=== PATIENT | male | born 1965 | race Hispanic/Latino ===

== ENCOUNTER 2019-01-12 16:19 | Emergency (ER) | payer BC, OTHER ==
[2019-01-12] MEDS ORDERED: ONDANSETRON HCL 4 MG/2 ML VIAL ONE (16:25)
[2019-01-12] MEDS ORDERED: SODIUM CHLORIDE 0.9% 1000ML 1,000 ML IV ONE (16:25)
[2019-01-12 16:36] LABS: BASOPHILS % (AUTO) 0.6 % (0.0-5.0); EOSINOPHILS % (AUTO) 2.1 % (0.0-8.0); HEMATOCRIT 46.2 % (42-54); LYMPHOCYTES % (AUTO) 44.2 % (21.0-51.0); MEAN CORPUSCULAR HEMOGLOBIN 28.9 pg (27.0-33.0); MEAN CORPUSCULAR HGB CONC 34.1 g/dL (32.0-36.0); MEAN CORPUSCULAR VOLUME 84.6 fL (79-99); MONOCYTES % (AUTO) 8.9 % (3.0-13.0); NEUTROPHILS % (AUTO) 44.2 % (40.0-77.0); PLATELET COUNT (AUTO) 296 K/uL (130-400); RED BLOOD CELL COUNT(AUTO) 5.47 MIL/uL (4.50-6.20); RED CELL DISTRIBUTION WIDTH 15.5 % (11.0-15.5); WHITE BLOOD COUNT (AUTO) 9.5 K/uL (4.8-10.8)
[2019-01-12 16:43] LABS: CREATININE 0.9 mg/dL (0.5-1.5); POTASSIUM 3.6 mmol/L (3.5-5.1)
[2019-01-12 16:47] LABS: INR 1.11 (0.85-1.15); PARTIAL THROMBOPLASTIN TIME 27.5 SEC (26.3-35.5); PROTHROMBIN TIME 11.6 SEC (9.6-11.6)
[2019-01-12 16:54] LABS: ALBUMIN 3.2 g/dL (3.5-5.0); BILIRUBIN,TOTAL 0.4 mg/dL (0.2-1.0); TOTAL PROTEIN, SERUM 8.2 g/dL (6.0-8.3)
[2019-01-12] MEDS ORDERED: MECLIZINE HCL 25 MG TABLET ONE (17:12)
== END 2019-01-12 18:47 | disposition home or self-care (01) ==
LOC: EDH 16:19
DX: R42 Dizziness and giddiness (principal); I10 Essential (primary) hypertension; E11.9 Type 2 diabetes mellitus without complications; Z98.890 Other specified postprocedural states; Z72.0 Tobacco use
CPT/HCPCS: 36415; 70450; 71045; 80053; 82550; 82948; 83874; 84484; 85025; 85610; 85730; 93005; 96361; 96374; 99285; J2405; J7030

== ENCOUNTER 2019-11-24 07:42 | Inpatient (IN) | payer OTHER ==
[2019-11-24 09:28] LABS: BASOPHILS % (AUTO) 0.3 % (0.0-5.0); EOSINOPHILS % (AUTO) 1.8 % (0.0-8.0); HEMATOCRIT 42.9 % (42-54); LYMPHOCYTES % (AUTO) 1.4 % (21.0-51.0); MEAN CORPUSCULAR HGB CONC 33.3 g/dL (32.0-36.0); MEAN CORPUSCULAR VOLUME 84.1 fL (79-99); MONOCYTES % (AUTO) 0.9 % (3.0-13.0); NEUTROPHILS % (AUTO) 95.3 % (40.0-77.0); PLATELET COUNT (AUTO) 148 K/uL (130-400); RED CELL DISTRIBUTION WIDTH 15.4 % (11.0-15.5); WHITE BLOOD COUNT (AUTO) 11.2 K/uL (4.8-10.8)
[2019-11-24 09:40] LABS: INR 1.25 (0.85-1.15); PARTIAL THROMBOPLASTIN TIME 29.6 SEC (26.3-35.5); PROTHROMBIN TIME 13.4 SEC (9.6-11.6)
[2019-11-24 09:42] LABS: CARBON DIOXIDE 25 mmol/L (21-32); CHLORIDE 105 mmol/L (101-111); CREATININE 1.2 mg/dL (0.5-1.5); GLOMERULAR FILTR. RATE CALC 67 mL/min (>60); GLUCOSE,RANDOM 85 mg/dL (70-105); SODIUM SERUM 139 mmol/L (136-145); UREA NITROGEN, BLOOD 19 mg/dL (7-18)
[2019-11-24 09:53] LABS: ALANINE AMINOTRANSFERASE 138 U/L (12-78); ALBUMIN 2.7 g/dL (3.5-5.0); ASPARTATE AMINOTRANSFERASE 132 U/L (10-37); BILIRUBIN,TOTAL 0.7 mg/dL (0.2-1.0); CREATINE KINASE, TOTAL 68 U/L (21-232); MYOGLOBIN 56 ng/mL (10-92); TOTAL PROTEIN, SERUM 6.3 g/dL (6.0-8.3); TROPONIN I < 0.04 ng/mL (0.00-0.06)
[2019-11-24] MEDS ORDERED: CEFTRIAXONE SODIUM 2 GM VIAL ONE ×2 (10:26→10:28)
[2019-11-24 11:25] LABS: APPEARANCE,URINE Clear (CLEAR); BILIRUBIN,URINE Small (NEGATIVE); COLOR,URINE Dark Yellow (YELLOW); GLUCOSE, URINE (UA) Negative (NEGATIVE); KETONES,URINE Trace mg/dL (NEGATIVE); LEUKOCYTE ESTERASE ,URINE Moderate (NEGATIVE); NITRATE,URINE Negative (NEGATIVE); OCCULT BLOOD,URINE Negative (NEGATIVE); PH,URINE 5.5 (5.0-8.0); PROTEIN,URINE Trace mg/dL (NEGATIVE)
[2019-11-24 11:40] LABS: BACTERIA,URINE Few /HPF (None Seen); RBC,URINE 0-1 /HPF (0-1)
[2019-11-24] MEDS ORDERED: ACETAMINOPHEN 325 MG TAB PO PRN (13:15)
[2019-11-24] MEDS ORDERED: SODIUM CHLORIDE 0.9% 1000ML 1,000 ML IV SCH (13:15)
[2019-11-24] MEDS ORDERED: CEFTRIAXONE SODIUM 1 GM IVP SCH (13:15)
[2019-11-24] MEDS ORDERED: ONDANSETRON HCL 4 MG/2 ML VIAL IVP PRN (13:30)
--- NOTE | 2019-11-24 15:15 | NUR ---
PATIENT ARRIVED FROM ED PATIENT ARRIVED FROM ED TO 230 AT 1515. PATIENT IS ON ROOM AIR, VS ARE STABLE. PATIENT IS IN NO APPARENT DISTRESS AT THIS TIME.
[2019-11-24 15:30] VITALS: BP 100/61
[2019-11-24] MEDS ORDERED: ATOR10 PO (17:05)
[2019-11-24] MEDS ORDERED: CALC-1174 PO (17:05)
[2019-11-24] MEDS ORDERED: PREG50CA63 PO (17:05)
[2019-11-24] MEDS ORDERED: MULT-1203 PO (17:14)
[2019-11-24] MEDS: CEFTRIAXONE SODIUM 1 GM IVP SCH (17:30)
--- NOTE | 2019-11-24 18:40 | NUR ---
DR. RAZIA RANDLE AT BEDSIDE TO SEE AND ASSESS PATIENT.
[2019-11-24 20:16] VITALS: BP 95/56
[2019-11-24] MEDS: FAMOTIDINE 20MG TAB 20 MG TAB PO SCH (21:05)
[2019-11-25] VITALS (7 sets, daily range): BP systolic 106–129; BP diastolic 48–70
[2019-11-25 05:19] LABS: ALBUMIN 2.4 g/dL (3.5-5.0); BILIRUBIN,TOTAL 0.5 mg/dL (0.2-1.0); CREATININE 0.7 mg/dL (0.5-1.5); MAGNESIUM 1.8 mg/dL (1.80-2.40); PHOSPHORUS 2.1 mg/dL (2.5-4.9); POTASSIUM 3.4 mmol/L (3.5-5.1); TOTAL PROTEIN, SERUM 5.8 g/dL (6.0-8.3)
[2019-11-25 05:24] LABS: BASOPHILS % (AUTO) 0.3 % (0.0-5.0); HEMATOCRIT 37.7 % (42-54); LYMPHOCYTES % (AUTO) 5.5 % (21.0-51.0); MEAN CORPUSCULAR HEMOGLOBIN 28.4 pg (27.0-33.0); MEAN CORPUSCULAR HGB CONC 33.4 g/dL (32.0-36.0); MEAN CORPUSCULAR VOLUME 84.9 fL (79-99); MONOCYTES % (AUTO) 4.3 % (3.0-13.0); NEUTROPHILS % (AUTO) 88.5 % (40.0-77.0); PLATELET COUNT (AUTO) 116 K/uL (130-400); RED BLOOD CELL COUNT(AUTO) 4.44 MIL/uL (4.50-6.20); RED CELL DISTRIBUTION WIDTH 15.6 % (11.0-15.5); WHITE BLOOD COUNT (AUTO) 11.7 K/uL (4.8-10.8)
[2019-11-25] MEDS: CEFTRIAXONE SODIUM 1 GM IVP SCH ×2 (05:43→16:44)
[2019-11-25] MEDS: FAMOTIDINE 20MG TAB 20 MG TAB PO SCH ×2 (09:56→21:13)
[2019-11-25] MEDS: ENOXAPARIN SODIUM 30 MG/0.3 ML SQ SCH (09:57)
--- NOTE | 2019-11-25 15:33 | NUR ---
INIITAL SPOKE W/ PATIENT TO VERIFY DC PLANNING- EMPLOYED, ACTIVE , INDEPENDENT, SMOKER, LIVES W [employer] [facility] WHO WILL PROVIDE TRANSPORT. DC P HOME. Addendum: 11/25/19 at 1535 by OTONIEL HYLTON RN CM Amended: Links added.
[2019-11-26 03:00] VITALS: BP 137/70
[2019-11-26 04:51] LABS: BASOPHILS % (AUTO) 0.2 % (0.0-5.0); EOSINOPHILS % (AUTO) 2.1 % (0.0-8.0); HEMATOCRIT 37.8 % (42-54); LYMPHOCYTES % (AUTO) 17.6 % (21.0-51.0); MEAN CORPUSCULAR HEMOGLOBIN 27.8 pg (27.0-33.0); MEAN CORPUSCULAR HGB CONC 33.1 g/dL (32.0-36.0); MONOCYTES % (AUTO) 6.3 % (3.0-13.0); NEUTROPHILS % (AUTO) 73.5 % (40.0-77.0); PLATELET COUNT (AUTO) 102 K/uL (130-400); RED CELL DISTRIBUTION WIDTH 15.4 % (11.0-15.5); WHITE BLOOD COUNT (AUTO) 6.3 K/uL (4.8-10.8)
[2019-11-26] MEDS: CEFTRIAXONE SODIUM 1 GM IVP SCH ×2 (05:15→16:57)
[2019-11-26 05:26] LABS: ALBUMIN 2.3 g/dL (3.5-5.0); BILIRUBIN,TOTAL 0.4 mg/dL (0.2-1.0); CREATININE 0.6 mg/dL (0.5-1.5); CRP QUANTITATIVE 112.8 mg/L (0.00-9.0); POTASSIUM 3.4 mmol/L (3.5-5.1); TOTAL PROTEIN, SERUM 5.8 g/dL (6.0-8.3)
[2019-11-26] MEDS: ENOXAPARIN SODIUM 30 MG/0.3 ML SQ SCH (07:40)
[2019-11-26] MEDS: FAMOTIDINE 20MG TAB 20 MG TAB PO SCH ×2 (07:40→20:42)
[2019-11-26 08:59] VITALS: BP 115/64
[2019-11-26] MEDS ORDERED: ZOSYN 3.375GM+NS 50ML 50 ML IV SCH (09:45)
[2019-11-26] MEDS ORDERED: POTASSIUM CHLORIDE 20 MEQ ERTAB PO SCH (10:00)
[2019-11-26 12:06] VITALS: BP 125/77
[2019-11-26] MEDS ORDERED: LEVOFLOXACIN 500 MG TABLET PO SCH (12:15)
--- NOTE | 2019-11-26 13:13 | NUR ---
PLAN OF CARE DISCUSSED WITH PRIMARY RN- KIMANI THIS MORNING + HESHAM,+ NOEL AGOSTO PENDING, PATIENT INQUIRING RE DISCHARGE ANTICIPATING NO DISCHARGE TODAY DC PLAN WILL STILL BE TO HOME. WILL WAIT ON MED REC'S FROM DR. Mims Addendum: 11/26/19 at 1317 by OTONIEL HYLTON RN CM Amended: Links added.
[2019-11-26 16:35] VITALS: BP 99/64
[2019-11-26 19:00] VITALS: BP 105/68
[2019-11-27 00:14] VITALS: BP 108/72
[2019-11-27 04:23] VITALS: BP 110/66
[2019-11-27] MEDS: CEFTRIAXONE SODIUM 1 GM IVP SCH ×2 (04:49→16:02)
[2019-11-27 06:03] LABS: BASOPHILS % (AUTO) 0.4 % (0.0-5.0); EOSINOPHILS % (AUTO) 1.9 % (0.0-8.0); HEMATOCRIT 40.8 % (42-54); LYMPHOCYTES % (AUTO) 23.4 % (21.0-51.0); MEAN CORPUSCULAR HEMOGLOBIN 28.5 pg (27.0-33.0); MEAN CORPUSCULAR HGB CONC 33.6 g/dL (32.0-36.0); MEAN CORPUSCULAR VOLUME 84.8 fL (79-99); MONOCYTES % (AUTO) 8.5 % (3.0-13.0); NEUTROPHILS % (AUTO) 64.8 % (40.0-77.0); PLATELET COUNT (AUTO) 121 K/uL (130-400); RED BLOOD CELL COUNT(AUTO) 4.81 MIL/uL (4.50-6.20); RED CELL DISTRIBUTION WIDTH 15.2 % (11.0-15.5); WHITE BLOOD COUNT (AUTO) 5.2 K/uL (4.8-10.8)
[2019-11-27 06:25] LABS: ALBUMIN 2.6 g/dL (3.5-5.0); BILIRUBIN,TOTAL 0.3 mg/dL (0.2-1.0); CREATININE 0.6 mg/dL (0.5-1.5); CRP QUANTITATIVE 58.1 mg/L (0.00-9.0); POTASSIUM 3.7 mmol/L (3.5-5.1); TOTAL PROTEIN, SERUM 6.5 g/dL (6.0-8.3)
--- NOTE | 2019-11-27 08:00 | NUR ---
TRANSFER NOTIFIED DR. CABRERA AT THIS TIME ABOUT NEGATIVE COVID RESULTS. HE STATED OKAY TO TRANSFER TO MED SURG BUT TO NOTIFY DR. 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 DR. DEL RIO WAS NOTIFIED OF TRANSFER ORDER.
[2019-11-27 08:12] VITALS: BP 126/71
[2019-11-27] MEDS: ENOXAPARIN SODIUM 30 MG/0.3 ML SQ SCH (08:28)
[2019-11-27] MEDS: FAMOTIDINE 20MG TAB 20 MG TAB PO SCH (08:28)
[2019-11-27] MEDS ORDERED: LEVOFLOXACIN 500 MG TABLET PO SCH (09:00)
[2019-11-27 11:51] VITALS: BP 107/62
--- NOTE | 2019-11-27 14:46 | NUR ---
REPORT REPORT GIVEN TO FRENCH ELLISON FROM 3RD FLOOR. PATIENT WILL BE TRANSFERRED SHORTLY.
[2019-11-27 16:31] VITALS: BP 123/67
--- NOTE | 2019-11-27 17:00 | NUR ---
DISCHARGE PATIENT GIVEN DISCHARGE INSTRUCTIONS AND EDUCATION ON FOLLOW UP APPOINTMENTS, NEW PRESCRIBED MEDICATION, AND S/S TO REPORT. PATIENT VERBALIZED UNDERSTANDING OF ALL EDUCATION GIVEN VIA TEACH BACK. IV DISCONTINUED, CATHETER INTACT. PATIENT LEFT VIA WHEELCHAIR, PCP AT SIDE. NO DISTRESS NOTED. ALL BELONGINGS TAKEN WITH.
== END 2019-11-27 17:40 | disposition home or self-care (01) | DRG 872 ==
LOC: EDH 07:42 → EDHIP 13:10 → 2AH 15:05 → 3DH 11-27 15:19
PROVIDERS: ADMIT Internal Medicine; ATTEND Internal Medicine
DX: A41.9 Sepsis, unspecified organism (principal); N39.0 Urinary tract infection, site not specified; Z16.24 Resistance to multiple antibiotics; E11.40 Type 2 diabetes mellitus with diabetic neuropathy, unspecified; E87.6 Hypokalemia; F17.210 Nicotine dependence, cigarettes, uncomplicated; B96.89 Other specified bacterial agents as the cause of diseases classified elsewhere; E78.5 Hyperlipidemia, unspecified; R30.0 Dysuria; I10 Essential (primary) hypertension; R53.81 Other malaise; E66.9 Obesity, unspecified; Z20.828 Contact with and (suspected) exposure to other viral communicable diseases; Z98.84 Bariatric surgery status; Z83.3 Family history of diabetes mellitus
CPT/HCPCS: 36415; 71045; 80053; 81001; 82550; 82728; 83605; 83615; 83735; 83874; 84100; 84145; 84484; 85025; 85378; 85384; 85610; 85730; 86140; 87040; 87077; 87088; 87186; 87633; 87635; 87804; 93005; G0378; J0696; J1650; J7030

== ENCOUNTER 2022-09-13 07:37 | Emergency (ER) | payer OTHER ==
[~2022-09-13] VITALS: Ht 167.6 cm; Wt 122.5 kg
[~2022-09-13 07:37] MED LIST: ATOR10 PO; CALC-1174 PO; MULT-1203 PO; PREG50CA63 PO
[2022-09-13 09:10] LABS: APPEARANCE,URINE CLEAR (CLEAR); BILIRUBIN,URINE NEGATIVE (NEGATIVE); COLOR,URINE YELLOW (YELLOW); GLUCOSE, URINE (UA) NEGATIVE (NEGATIVE); KETONES,URINE NEGATIVE (NEGATIVE); LEUKOCYTE ESTERASE ,URINE 75 Leu/uL (NEGATIVE); NITRATE,URINE 1+ (NEGATIVE); OCCULT BLOOD,URINE NEGATIVE (NEGATIVE); PROTEIN,URINE NEGATIVE (NEGATIVE); UROBILINOGEN,URINE 0.2 mg/dL (0.2-1.0)
[2022-09-13 09:28] LABS: BACTERIA,URINE MANY /HPF (None Seen); MUCUS,URINE RARE LPF (None Seen); SQUAMOUS EPITHELIAL CELL,UR RARE /HPF (0-2)
[2022-09-13] MEDS ORDERED: NAPR-1180 PO (11:21)
[2022-09-13] MEDS ORDERED: SULF1TAB42 PO (11:21)
[2022-09-13] MEDS ORDERED: ACETAMINOPHEN 500 MG TABLET PO ONE (11:30)
[2022-09-13] MEDS ORDERED: CEFTRIAXONE 1G VIAL IM ONE (11:30)
[2022-09-13 12:15] VITALS: BP 126/60
== END 2022-09-13 12:20 | disposition home or self-care (01) ==
LOC: EDH 07:37
DX: S06.0X0A Concussion without loss of consciousness, initial encounter (principal); S80.11XA Contusion of right lower leg, initial encounter; S16.1XXA Strain of muscle, fascia and tendon at neck level, initial encounter; S40.012A Contusion of left shoulder, initial encounter; N30.00 Acute cystitis without hematuria; F17.200 Nicotine dependence, unspecified, uncomplicated; Z98.890 Other specified postprocedural states; V79.9XXA Bus occupant (driver) (passenger) injured in unspecified traffic accident, initial encounter; Y93.I9 Activity, other involving external motion; Y92.488 Other paved roadways as the place of occurrence of the external cause; Y99.8 Other external cause status
CPT/HCPCS: 99285; 70450; 81001; 73030; 72125; 96372; J0696